=== PATIENT | female | born 1980 | race Caucasian/White ===

== ENCOUNTER → 2017-05-08 09:42 | Outpatient (CLI) | payer BC, SELFPAY ==
[2017-05-08 10:18] LABS: Absolute Lymphocyte Count 1.82 X10^3/ul (0.83-4.51); Absolute Neutrophil Count 6.5 X10^3/uL (2.0-7.7); Basophil# 0.02 X10^3/uL; Basophil% 0.2 % (0-1); Eosinophil# 0.05 X10^3/uL; Eosinophils% 0.6 % (0-5); Hemoglobin 10.8 g/dl (12.0-15.0); Lymphocyte # 1.82 X10^3/ul (4.0); Lymphocyte % 20.4 % (19-41); Mean Corp Hgb Conc 32.7 g/gl (32-36); Mean Corpuscular Volume 82.5 fL (81-99); Mean Platelet Vol. 9.8 fl (6.2-12.0); Monocyte# 0.49 X10^3/uL; Monocyte% 5.5 % (0-10); Neutrophil # 6.51 X10^3/uL (2.7-7.7); Neutrophil % 73.1 % (47-70); Platelet Count 281 K/mm3 (150-450); RBC Distribution Width CV 13.8 % (11.6-14.6); RBC Distribution Width SD 41.2 fl (35.1-43.9); White Blood Count 8.9 K/mm3 (4.4-11.0)
[2017-05-08 10:38] LABS: Glucose Challenge Gest 1H 50g 54 mg/dL (70-140)
== END ==
PROVIDERS: Family Provider Student in an Organized Health Care Education/Training Program; PCP Student in an Organized Health Care Education/Training Program; Visit Provider Obstetrics & Gynecology
DX: O09.92 Supervision of high risk pregnancy, unspecified, second trimester (principal); Z3A.00 Weeks of gestation of pregnancy not specified
CPT/HCPCS: 36415; 82950; 85025; 86850; 86900

== ENCOUNTER → 2017-05-22 18:02 | Outpatient (CLI) | payer BC, SELFPAY ==
[2017-05-22 18:49] LABS: Protein:Creat Ratio 122 mg/g CRE (0-200)
== END ==
PROVIDERS: Family Provider Student in an Organized Health Care Education/Training Program; PCP Student in an Organized Health Care Education/Training Program; Visit Provider Obstetrics & Gynecology
DX: O12.03 Gestational edema, third trimester (principal); Z3A.00 Weeks of gestation of pregnancy not specified
CPT/HCPCS: 82570; 84156

== ENCOUNTER → 2017-05-30 07:58 | Outpatient (CLI) | payer BC, SELFPAY ==
--- NOTE | 2017-05-30 08:00 | US_ITS ---
STUDY: SECOND AND THIRD TRIMESTER OBSTETRICAL ULTRASOUND - LIMITED REASON FOR EXAM: Female, 36 years old. Routine survey. LMP: October 21, 2016. PRIOR ULTRASOUND: Comparison is made with prior study dated March 04, 2017. TECHNIQUE: Transabdominal ultrasound evaluation was performed. FINDINGS: There is a single intrauterine fetus. The fetus is in a cephalic presentation. There is demonstrated cardiac activity with a heart rate of 134 bpm. There is increased amniotic fluid volume consistent with polyhydramnios. The largest amniotic fluid pocket measures 9.3 cm. The amniotic fluid index (TERELL) is 25.01 cm. The placenta is anterior in location and is not low lying. There are Grade 0 placental changes. The cervix was not well visualized due to the head positioning. BIOMETRY: BPD: 8.23 cm: 33 weeks, 1 days HC: 31.51 cm: 35 weeks, 3 days AC: 28.95 cm: 33 weeks, 0 days FL: 6.16 cm: 32 weeks, 0 days Age by LMP: 31 weeks, 4 days. JAMIE by LMP: July 28, 2017. age by prior US: 31 weeks, 3 days. JAMIE by prior US: July 27, 2017. age by current US: 33 weeks, 3 days. JAMIE by current US: July 15, 2017. Estimated weight: 2078 grams, +/- 303 grams, 82 percentile. Gender: Male US/OB Limited With Biometrics IMPRESSION: Single live uterine gestation with mean gestational age of 31 weeks and 3 days. The measurements obtained today following the normal expected range. Mild degree of polyhydramnios. Electronically Signed: Gagandeep Byrd MD at 13:36 EDT Tel [phone], Service support ,
== END ==
PROVIDERS: Family Provider Student in an Organized Health Care Education/Training Program; PCP Student in an Organized Health Care Education/Training Program; Visit Provider Obstetrics & Gynecology
DX: O26.843 Uterine size-date discrepancy, third trimester (principal); Z3A.00 Weeks of gestation of pregnancy not specified
CPT/HCPCS: 76816

== ENCOUNTER → 2017-06-06 08:15 | Outpatient (CLI) | payer BC, SELFPAY ==
[2017-06-06 09:38] LABS: Hemoglobin A1c 5.5 % (4.2-6.3)
== END ==
PROVIDERS: Family Provider Student in an Organized Health Care Education/Training Program; PCP Student in an Organized Health Care Education/Training Program; Visit Provider Obstetrics & Gynecology
DX: O40.9XX0 Polyhydramnios, unspecified trimester, not applicable or unspecified (principal); Z3A.00 Weeks of gestation of pregnancy not specified
CPT/HCPCS: 36415; 83036

== ENCOUNTER → 2017-06-26 12:23 | Outpatient (CLI) | payer BC, SELFPAY ==
--- NOTE | 2017-06-26 12:24 | US_ITS ---
STUDY: SECOND AND THIRD TRIMESTER OBSTETRICAL ULTRASOUND - LIMITED REASON FOR EXAM: Female, 36 years old. Polyhydramnios. LMP: October 21, 2016. PRIOR ULTRASOUND: Comparison is made with prior study dated May 30, 2017. TECHNIQUE: Transabdominal ultrasound evaluation was performed. FINDINGS: There is a single intrauterine fetus. The fetus is in a cephalic presentation. There is demonstrated cardiac activity with a heart rate of 128 bpm. There is a normal amniotic fluid volume. The largest amniotic fluid pocket measures 12.0 cm x 8.1 cm. The amniotic fluid index (TERELL) is 28 cm. Once again, there is evidence of polyhydramnios. The placenta is anterior in location and is not low lying. There are Grade 1 placental changes. The cervix measures 4.5 cm in length. BIOMETRY: BPD: 9.29 cm: 37 weeks, 6 days HC: 33.65 cm: 38 weeks, 4 days AC: 34.13 cm: 38 weeks, 1 days FL: 7.12 cm: 36 weeks, 4 days Age by LMP: 35 weeks, 3 days. JAMIE by LMP: July 28, 2017. age by prior US: 37 weeks, 3 days. JAMIE by prior US: July 15, 2017. age by current US: 37 weeks, 6 days. JAMIE by current US: July 11, 2017. Estimated weight: 3284 grams, +/- 479 grams, 96 percentile. Gender: Male US/OB Limited With Biometrics IMPRESSION: Single live uterine gestation with a mean gestational age of 37 weeks and 3 days. The measurements obtained today following the normal expected range. Polyhydramnios. Electronically Signed: Gagandeep Byrd MD at 14:04 EDT Tel [phone], Service support ,
== END ==
PROVIDERS: Family Provider Student in an Organized Health Care Education/Training Program; PCP Student in an Organized Health Care Education/Training Program; Visit Provider Obstetrics & Gynecology
DX: O40.9XX0 Polyhydramnios, unspecified trimester, not applicable or unspecified (principal); Z3A.00 Weeks of gestation of pregnancy not specified
CPT/HCPCS: 76816

== ENCOUNTER → 2017-07-01 15:57 | Outpatient (CLI) | payer BC, SELFPAY ==
[2017-07-01 18:55] LABS: Group B Strep DNA By PCR Negative (Negative); Internal Control PASS; Probe Check PASS; Specimen Processing Control PASS
== END ==
PROVIDERS: Family Provider Student in an Organized Health Care Education/Training Program; PCP Student in an Organized Health Care Education/Training Program; Visit Provider Nurse Practitioner Women's Health
DX: Z34.83 Encounter for supervision of other normal pregnancy, third trimester (principal); Z3A.36 36 weeks gestation of pregnancy
CPT/HCPCS: 87081; 87653

== ENCOUNTER 2017-07-09 16:25 | Outpatient (CLI) | payer BC, SELFPAY ==
[2017-07-09 16:42] VITALS: BMI 42.1
--- NOTE | 2017-07-10 04:32 | OB.TRI.NOTE ---
History of Present Illness Date of Service: 07/09/17 Was patient seen by the physician?: No Reason For Visit: NST Date of Service: 07/09/17 Final JAMIE: 07/28/17 Gestational age: 37 Weeks and 3 Days Home Medications Medication Instructions Recorded #103/Iron Fumarate/FA 1 ea PO DAILY 08/24/16 [ Tablet] compression stocking,knee See Dose Instructions .ROUTE 05/22/17 high,long length,large circum .MEDSUPPLY #12 ea Allergies No Known Allergies Allergy (Verified 07/08/17 08:32)
== END 2017-07-09 17:40 | disposition home or self-care (01) ==
LOC: WPOUT 16:30 → WP 16:32
PROVIDERS: Family Provider Student in an Organized Health Care Education/Training Program; PCP Student in an Organized Health Care Education/Training Program; Visit Provider Obstetrics & Gynecology
DX: O36.8130 Decreased fetal movements, third trimester, not applicable or unspecified (principal); Z3A.37 37 weeks gestation of pregnancy
CPT/HCPCS: 59025; 59050; 99218; G0378

== ENCOUNTER 2017-07-21 05:07 | Inpatient (IN) | payer BC, SELFPAY ==
[2017-07-15 09:19] VITALS: BMI 42.8
[2017-07-21] VITALS (22 sets, daily range): BP systolic 97–127; BP diastolic 32–77; PULSE 64–90; RESP 16–18; TEMP 36.7–37.5; O2SAT 95–100; BMI 43.2
[2017-07-21] MEDS: Lactated Ringers 1,000 ML 999 ML IV (05:30)
[2017-07-21 06:12] LABS: Absolute Neutrophil Count 8.1 X10^3/uL (2.0-7.7); Basophil# 0.02 X10^3/uL; Basophil% 0.2 % (0-1); Eosinophil# 0.08 X10^3/uL; Eosinophils% 0.7 % (0-5); Hematocrit 32.9 % (37-47); Hemoglobin 10.5 g/dl (12.0-15.0); Lymphocyte % 21.5 % (19-41); Mean Corp Hgb Conc 31.9 g/gl (32-36); Mean Corpuscular Hgb 24.7 pg (27.0-32.0); Mean Corpuscular Volume 77.4 fL (81-99); Mean Platelet Vol. 10.1 fl (6.2-12.0); Monocyte# 0.55 X10^3/uL; Monocyte% 4.9 % (0-10); Neutrophil # 8.08 X10^3/uL (2.7-7.7); Neutrophil % 72.5 % (47-70); POSITIVE COUNT NO; POSITIVE DIFFERENTIAL NO; POSITIVE MORPHOLOGY NO; Platelet Count 268 K/mm3 (150-450); RBC Distribution Width CV 16.5 % (11.6-14.6); RBC Distribution Width SD 46.5 fl (35.1-43.9); Red Blood Count 4.25 M/mm3 (4.2-5.4); White Blood Count 11.2 K/mm3 (4.4-11.0)
[2017-07-21] MEDS: Lactated Ringers 1,000 ML 150 ML IV (06:30)
[2017-07-21] MEDS: Sodium Citrate/Citric Acid 30 ML UDC PO (07:04)
--- NOTE | 2017-07-21 07:42 | PCM.HP.OB ---
- Problem List (1) Supervision of high-risk of elderly multigravida, third trimester Status: Acute Comment: PRR JAMIE 07/28/17 boy on us PC Alicia Bahena, Jatinder. (2) Large for gestational age fetus affecting mother, antepartum, third trimester, single gestation Status: Acute Comment: 96% (3) Polyhydramnios affecting Status: Acute Comment: nl hga1c, recommend weekly nsts until delivery (4) Edema during in third trimester Status: Acute Comment: urine protein/creatinine ratio, preeclampsia precautions reviewed, compression stockings given (5) Advanced maternal age (AMA) in Status: Acute Comment: NIPT screeningnormal (6) History of 2 sections Status: Acute Comment: planning RLTCS (7) Need for rhogam due to Rh negative mother Status: Acute Comment: rhogam PRN and 28 weeks- given History Date of Admission: 07/21/17 Final JAMIE: 07/28/17 Gestational age: 39 Weeks and 0 Days History of this : 36 yo @ 39w presents for repeat LTCS. she has had a complicated by All Active Problems (Last Reviewed 07/15/17 @ 08:34 by Aleah Arellano) Supervision of high-risk of elderly multigravida, third trimester (Acute) Large for gestational age fetus affecting mother, antepartum, third trimester, single gestation (Acute) Polyhydramnios affecting (Acute) Edema during in third trimester (Acute) Advanced maternal age (AMA) in (Acute) History of 2 sections (Acute) Need for rhogam due to Rh negative mother (Acute) Uterine size-date discrepancy in third trimester (Ruled-out) Pertinent Past Medical History: [facility] Medical History AMA (advanced maternal age) multigravida 35+ (Acute) Melanoma (Acute) Surgical History delivery delivered (Acute) H/O bariatric surgery (Acute) Family History Mother Breast cancer Aunt Breast cancer Social History Smoking Status: Former smoker alcohol intake: never substance use type: does not use caffeine: Yes what type of physical activity do you participate in: none seatbelt use: always additional social history: jatinder- Pregancy History 4 Elective abortions Hx Para 2 Spontaneous abortions Hx # Term Pregnancies Ectopic pregnancies Hx # Pregnancies Multiple births # of living children Past Pregnancies Del. Date Name GA/Weeks Outcome Route Bth Weight Infant Gen Labor Lgth Anesthesia Del Locatn Provider FOB 12/06/14 Max 39 live - full term [facility] Shiva 02/02/10 Alicia 39 live - full term Female [place] Allergies No Known Allergies Allergy (Verified 07/15/17 08:34) Current Medications Citric Acid/Sodium Citrate (Bicitra) 30 ml PO UD KELLE Last Admin: 07/21/17 07:04 Dose: 30 ml Lactated Ringer's () 1,000 mls @ 150 mls/hr IV .Q6H40M KELLE Last Admin: 07/21/17 06:30 Dose: 150 mls/hr Sodium Chloride () 0 ml IV UD KELLE Last Admin: 07/21/17 06:43 Dose: Not Given Smoking Status: Never smoker Alcohol: None Drug Use: none Number of Fetus(es): 1 - fht 140s Review of Systems Constitutional: Denies: Chills, Fever, Weight Change HEENT: Denies: Head Aches, Sinus Congestion, Sinus Drainage Cardiovascular: Denies: Chest Pain, Palpitations Respiratory: Denies: Cough, Shortness of breath at rest, Sputum production Gastrointestinal: Denies: Abdominal Pain, Nausea, Vomiting Genitourinary: Denies: Dysuria Musculoskeletal: Denies: Joint Pain, Joint Tenderness Skin: Denies: Rash, Wounds Neurological: Denies: Numbness, Tingling, Focal weakness Psychiatric: Denies: Anxiety, Depression, Homicidal Ideations, Suicidal Ideations Hematologic/ Lymphatic: Denies: Easy Bruising, Easy Bleeding Physical Exam General: Alert, Oriented x3, No apparent distress Cardiovascular: Regular rate, Regular Rhythm Lungs: Clear to auscultation Abdomen: Bowel Sounds Present, Gravid Estimated gestational size: Large for gestational age Assessment/Plan 36 yo @ 39 weeks presents for RLTCS 1. plan rltcs
--- NOTE | 2017-07-21 07:45 | HP.PCM_ITS ---
- Problem List (1) Supervision of high-risk of elderly multigravida, third trimester Status: Acute Comment: PRR JAMIE 07/28/17 boy on us PC Alicia Bahena, Jatinder. (2) Large for gestational age fetus affecting mother, antepartum, third trimester, single gestation Status: Acute Comment: 96% (3) Polyhydramnios affecting Status: Acute Comment: nl hga1c, recommend weekly nsts until delivery (4) Edema during in third trimester Status: Acute Comment: urine protein/creatinine ratio, preeclampsia precautions reviewed, compression stockings given (5) Advanced maternal age (AMA) in Status: Acute Comment: NIPT screeningnormal (6) History of 2 sections Status: Acute Comment: planning RLTCS (7) Need for rhogam due to Rh negative mother Status: Acute Comment: rhogam PRN and 28 weeks- given History Date of Admission: 07/21/17 Final JAMIE: 07/28/17 Gestational age: 39 Weeks and 0 Days History of this : 36 yo @ 39w presents for repeat LTCS. she has had a complicated by All Active Problems (Last Reviewed 07/15/17 @ 08:34 by Aleah Arellano) Supervision of high-risk of elderly multigravida, third trimester ( Acute) Large for gestational age fetus affecting mother, antepartum, third trimester, single gestation (Acute) Polyhydramnios affecting (Acute) Edema during in third trimester (Acute) Advanced maternal age (AMA) in (Acute) History of 2 sections (Acute) Need for rhogam due to Rh negative mother (Acute) Uterine size-date discrepancy in third trimester (Ruled-out) Pertinent Past Medical History: [facility] Medical History AMA (advanced maternal age) multigravida 35+ (Acute) Melanoma (Acute) Surgical History delivery delivered (Acute) H/O bariatric surgery (Acute) Family History Mother Breast cancer Aunt Breast cancer Social History Smoking Status: Former smoker alcohol intake: never substance use type: does not use caffeine: Yes what type of physical activity do you participate in: none seatbelt use: always additional social history: jatinder- Pregancy History 4 Elective abortions Hx Para 2 Spontaneous abortions Hx # Term Pregnancies Ectopic pregnancies Hx # Pregnancies Multiple births # of living children Past Pregnancies Del. Date Name GA/Weeks Outcome Route Bth Weight Infant Gen Labor Lgth Anesthesia Del Locatn Provider FOB 12/06/14 Max 39 live - full term [facility] Shiva 02/02/10 Alicia 39 live - full term Female [place] Allergies No Known Allergies Allergy (Verified 07/15/17 08:34) Current Medications Citric Acid/Sodium Citrate (Bicitra) 30 ml PO UD KELLE Last Admin: 07/21/17 07:04 Dose: 30 ml Lactated Ringer's () 1,000 mls @ 150 mls/hr IV .Q6H40M KELLE Last Admin: 07/21/17 06:30 Dose: 150 mls/hr Sodium Chloride () 0 ml IV UD KELLE Last Admin: 07/21/17 06:43 Dose: Not Given Smoking Status: Never smoker Alcohol: None Drug Use: none Number of Fetus(es): 1 - fht 140s Review of Systems Constitutional: Denies: Chills, Fever, Weight Change HEENT: Denies: Head Aches, Sinus Congestion, Sinus Drainage Cardiovascular: Denies: Chest Pain, Palpitations Respiratory: Denies: Cough, Shortness of breath at rest, Sputum production Gastrointestinal: Denies: Abdominal Pain, Nausea, Vomiting Genitourinary: Denies: Dysuria Musculoskeletal: Denies: Joint Pain, Joint Tenderness Skin: Denies: Rash, Wounds Neurological: Denies: Numbness, Tingling, Focal weakness Psychiatric: Denies: Anxiety, Depression, Homicidal Ideations, Suicidal Ideations Hematologic/ Lymphatic: Denies: Easy Bruising, Easy Bleeding Physical Exam General: Alert, Oriented x3, No apparent distress Cardiovascular: Regular rate, Regular Rhythm Lungs: Clear to auscultation Abdomen: Bowel Sounds Present, Gravid Estimated gestational size: Large for gestational age Assessment/Plan 36 yo @ 39 weeks presents for RLTCS 1. plan rltcs
[2017-07-21] MEDS: Oxytocin 30 units/NS 500 ml 30 UNITS/500 ML IV.SOLN 167 UNITS IV (07:56)
[2017-07-21] MEDS: Ketorolac 30 MG/ML Syringe IV ×3 (08:00→20:20)
--- NOTE | 2017-07-21 09:01 | NURSING ---
bolus of lr infusing at this time for bp of 97/32
[2017-07-21] MEDS: Lactated Ringers 1,000 ML 100 ML IV ×2 (09:24→16:26)
[2017-07-21] MEDS: 0.9% Saline Lock 10 ML Syringe IV (14:13)
[2017-07-22] VITALS (7 sets, daily range): BP systolic 97–112; BP diastolic 55–61; PULSE 64–87; RESP 16–18; TEMP 36.4–37.2; O2SAT 97–100
[2017-07-22] MEDS: Acetaminophen 500 MG Tablet 1000 MG PO (00:05)
[2017-07-22] MEDS: Ketorolac 30 MG/ML Syringe IV ×4 (02:33→21:41)
--- NOTE | 2017-07-22 04:57 | PCM.OPRPT ---
Problem List (1) Supervision of high-risk of elderly multigravida, third trimester Status: Acute Comment: PRR JAMIE 07/28/17 boy on us PC Alicia Bahena, Jason. (2) Large for gestational age fetus affecting mother, antepartum, third trimester, single gestation Status: Acute Comment: 96% (3) Polyhydramnios affecting Status: Acute Comment: nl hga1c, recommend weekly nsts until delivery (4) Edema during in third trimester Status: Acute Comment: urine protein/creatinine ratio, preeclampsia precautions reviewed, compression stockings given (5) Advanced maternal age (AMA) in Status: Acute Comment: NIPT screeningnormal (6) History of 2 sections Status: Acute Comment: planning RLTCS (7) Need for rhogam due to Rh negative mother Status: Acute Comment: rhogam PRN and 28 weeks- given Report of Operation Date of Procedure: 07/21/17 Pre-Operative Diagnosis: previous cs x 2 Post-Operative Diagnosis: same Surgery/Procedure Performed:: RLTCS Description of Surgical Findings:: minimal scar tissue, some thinning of right lower uterine segment but overall within normal limits personal finance instructor: [place] Randolph Type of Anesthesia:: Spinal Special Medications: none Specimen's removed: male vertex presentation Drains: helton Estimated Blood Loss (mL): 400 Fluids Replaced: crystalloid Description of Procedure: The patient is a @ 39 weeks presented for repeat . Spinal anesthesia was placed without difficulty. Helton catheter was placed. The patient was placed in the dorsal supine position with leftward tilt. Patient was prepped and draped in the normal sterile fashion. Pfannenstiel skin incision was made with the scalpel and carried through to the underlying layer of fascia with the scalpel. Fascia was nicked in the midline and the incision extended laterally. minimal scar tissue encountered.The rectus bellies were dissected off superiorly and inferiorly with out complication both sharply and bluntly. The peritoneum was entered digitally. The incision was stretched and a low transverse uterine incision was made with the scalpel. there was some thinning of the right JULIA but overall it was normal. The infant's head was delivered atraumatically followed by the anterior and posterior shoulders without complication the rest of the infant delivered. The cord was clamped and cut and the infant was handed off to awaiting nurse. The placenta was delivered spontaneously immediately following and was noted to be intact and have a three-vessel cord. The uterus was exteriorized cleared of all clots and debris, and the incision was closed in a double layer closure using #1 Monocryl. The uterus was returned to the maternal abdomen and gutters were cleared of all clots and debris. The ovaries and fallopian tubes were noted to be within normal limits. The peritoneum was closed with 3-0 Monocryl in a running fashion. Fascia was closed with 0 PDS in a running fashion. Subcutaneous tissue was copiously irrigated and the skin was closed with 3-0 Monocryl in a subcuticular fashion. Steri-Strips and Mepilex dressing were applied without complication. Patient was taken to recovery in stable condition. Grafts/Implants Used: none - Complications none
[2017-07-22 05:36] LABS: Hematocrit 29.4 % (37-47); Hemoglobin 9.2 g/dl (12.0-15.0); Mean Corp Hgb Conc 31.3 g/gl (32-36); Mean Corpuscular Hgb 24.5 pg (27.0-32.0); Mean Corpuscular Volume 78.2 fL (81-99); Mean Platelet Vol. 9.6 fl (6.2-12.0); Platelet Count 190 K/mm3 (150-450); RBC Distribution Width CV 16.7 % (11.6-14.6); RBC Distribution Width SD 47.7 fl (35.1-43.9); Red Blood Count 3.76 M/mm3 (4.2-5.4); White Blood Count 8.4 K/mm3 (4.4-11.0)
[2017-07-22 05:52] LABS: Scan Indicated on CBC? Y/N NO
[2017-07-22] MEDS: 0.9% Saline Lock 10 ML Syringe IV ×3 (09:10→21:41)
[2017-07-22] MEDS: oxyCODONE 5 MG Tablet PO ×2 (13:01→18:27)
--- NOTE | 2017-07-22 17:37 | PCM.PN.OB ---
Subjective: doing well no complaints - Physical Exam General: Alert, Oriented x3 Vital Signs Temp Pulse Resp BP Pulse Ox 98.9 F 86 16 102/56 L 99 07/22/17 13:36 07/22/17 13:36 07/22/17 13:36 07/22/17 13:36 07/22/17 13:36 Oxygen Delivery Method Room Air Weight: 268 lb 1.314 oz Body Mass Index (BMI) 43.2 Intake and Output for Last 24 Hours 07/20/17 07/21/17 07/22/17 23:59 23:59 23:59 Intake Total 2944 / 2944 1073 / 1073 Output Total 1300 / 1300 2450 / 2450 Balance 1644 / 1644 -1377 / -1377 Laboratory Tests Past 24 Hrs 07/22/17 05:10 WBC 8.4 RBC 3.76 L Hgb 9.2 L Hct 29.4 L MCV 78.2 L MCH 24.5 L MCHC 31.3 L RDW 16.7 H RDW Differential 47.7 H Plt Count 190 MPV 9.6 Medical Necessity - Tobacco Use Smoking Status: Never smoker Assessment/Plan s/p rltcs routine care doing well
[2017-07-22] MEDS: Senna/Docusate Sodium 1 Tablet PO (21:41)
[2017-07-23 03:03] VITALS: BP 108/59; PULSE 68; RESP 16; TEMP 36.8; O2SAT 100
[2017-07-23] MEDS: Ketorolac 30 MG/ML Syringe IV (03:07)
[2017-07-23] MEDS: 0.9% Saline Lock 10 ML Syringe IV (03:07)
[2017-07-23 08:00] VITALS: BP 119/48; PULSE 77; RESP 18; TEMP 37.2; O2SAT 96
--- NOTE | 2017-07-23 08:04 | PCM.PN.OB ---
Subjective: Doing well. No SOB, CP. - Physical Exam General: Alert, Oriented x3 Abdomen: Soft, Non Tender, - - FF below U. Dressing dry and intact Vital Signs Temp Pulse Resp BP Pulse Ox 98.3 F 68 16 108/59 L 100 07/23/17 03:03 07/23/17 03:03 07/23/17 03:03 07/23/17 03:03 07/23/17 03:03 Oxygen Delivery Method Room Air Weight: 268 lb 1.314 oz Body Mass Index (BMI) 43.2 Intake and Output for Last 24 Hours 07/21/17 07/22/17 07/23/17 23:59 23:59 23:59 Intake Total 2944 / 2944 1073 / 1073 Output Total 1300 / 1300 2450 / 2450 Balance 1644 / 1644 -1377 / -1377 Medical Necessity - Tobacco Use Smoking Status: Never smoker Assessment/Plan R CS POD#2: , normal lochia, Rh negative. Plans home tomorrow. Routine care.
[2017-07-23] MEDS: Naproxen 250 MG Tablet PO ×2 (09:11→20:54)
[2017-07-23] MEDS: Acetaminophen 500 MG Tablet 1000 MG PO (13:59)
[2017-07-23 14:00] VITALS: BP 108/57; PULSE 77; RESP 16; TEMP 37.1; O2SAT 96
[2017-07-23 20:55] VITALS: BP 115/61; PULSE 78; RESP 18; TEMP 36.6; O2SAT 97
[2017-07-24 01:35] VITALS: BP 111/46; PULSE 73; RESP 17; TEMP 36.5
[2017-07-24] MEDS: Acetaminophen 500 MG Tablet 1000 MG PO (01:36)
[2017-07-24] MEDS: Naproxen 250 MG Tablet PO (06:39)
--- NOTE | 2017-07-24 07:42 | PCM.DCCSEC ---
Additional Instructions: If you experience any of the following, contact your healthcare provider. Bleeding that soaks a pad every hour for 2 hours Fever 100.4 or higher Unrelieved incision or abdominal pain Swelling, redness, discharge or bleeding from your incision or episiotomy site Your incision begins to separate Problems urinating (including inability to urinate or burning while urinating). Visual changes Severe headache Flu-like symptoms Pain or redness in one of both of your breasts Pain, warmth, tenderness or swelling in your legs, especially the calf area Frequent nausea and vomiting Symptoms of depression or anxiety If you experience any of the following, call 911 or go to the nearest Emergency Room. Chest pain Problems breathing Seizure activity Partial or complete paralysis of a body part, slurred speech, weakness or drooping of the face, or a sudden inability to walk or hold your balance Allergies/Adverse Reactions: Allergies No Known Allergies Allergy (Verified 07/15/17 08:34) Medications to take at Discharge #103/Iron Fumarate/FA [ Tablet] 1 ea PO DAILY 08/24/16 compression stocking,knee high,long length,large circum See Dose Instructions .ROUTE .MEDSUPPLY #12 ea 05/22/17 Ferrous Sulfate [Iron] 325 mg PO 07/15/17 Oxycodone HCl/Acetaminophen [Percocet 5/325] 1 - 2 tablet PO Q4H PRN PRN 7 Days #15 tablet 07/24/17 The following prescriptions were given: Oxycodone HCl/Acetaminophen [Percocet 5/325] 1 - 2 tablet PO Q4H PRN PRN 7 Days #15 tablet PRN Reason: Pain Follow-Up: Call to make an appointment with your doctor for an incision check in 1-2 weeks. You will also need a 6 week post- follow up appointment. Primary Care Physician: Mingo Au DO [Primary Care Provider] -
--- NOTE | 2017-07-24 07:43 | DCINST_ITS ---
Additional Instructions: If you experience any of the following, contact your healthcare provider. * Bleeding that soaks a pad every hour for 2 hours * Fever 100.4 or higher * Unrelieved incision or abdominal pain * Swelling, redness, discharge or bleeding from your incision or episiotomy site * Your incision begins to separate * Problems urinating (including inability to urinate or burning while urinating) . * Visual changes * Severe headache * Flu-like symptoms * Pain or redness in one of both of your breasts * Pain, warmth, tenderness or swelling in your legs, especially the calf area * Frequent nausea and vomiting * Symptoms of depression or anxiety If you experience any of the following, call 911 or go to the nearest Emergency Room. * Chest pain * Problems breathing * Seizure activity * Partial or complete paralysis of a body part, slurred speech, weakness or drooping of the face, or a sudden inability to walk or hold your balance Allergies/Adverse Reactions: Allergies No Known Allergies Allergy (Verified 07/15/17 08:34) Medications to take at Discharge #103/Iron Fumarate/FA [ Tablet] 1 ea PO DAILY 08/24/16 compression stocking,knee high,long length,large circum See Dose Instructions .ROUTE .MEDSUPPLY #12 ea 05/22/17 Ferrous Sulfate [Iron] 325 mg PO 07/15/17 Oxycodone HCl/Acetaminophen [Percocet 5/325] 1 - 2 tablet PO Q4H PRN PRN 7 Days #15 tablet 07/24/17 The following prescriptions were given: Oxycodone HCl/Acetaminophen [Percocet 5/325] 1 - 2 tablet PO Q4H PRN PRN 7 Days #15 tablet PRN Reason: Pain Follow-Up: Call to make an appointment with your doctor for an incision check in 1-2 weeks. You will also need a 6 week post- follow up appointment. Primary Care Physician: Mingo Au DO [Primary Care Provider] -
[2017-07-24 08:00] VITALS: BP 127/81; PULSE 84; RESP 16; TEMP 37.1
[2017-07-24 12:00] VITALS: BP 113/62; PULSE 82; RESP 18; TEMP 37.2
--- NOTE | 2017-07-24 13:54 | NURSING ---
1315 infant and maternal bracelet numbers match; infant placed in car seat per parents dc to home
--- NOTE | 2017-07-27 08:24 | PCM.DC.SUM ---
Discharge Date and Diagnosis Date of Admission: 07/21/17 Date of Discharge: 07/24/17 - Primary Discharge Diagnosis previous cs x 2 - Secondary Discharge Diagnosis same Hospital Course and Treatment Operations: - - RLTCS Summary of Care Provided: The patient is a 36 year old F presented for RLTCS tolerated procedure well routine recovery return of bowel and bladder function Discharge Diet: No Restrictions Discharge Activity: No Restrictions Home Medications: Medications to take at Discharge #103/Iron Fumarate/FA [ Tablet] 1 ea PO DAILY 08/24/16 compression stocking,knee high,long length,large circum See Dose Instructions .ROUTE .MEDSUPPLY #12 ea 05/22/17 Ferrous Sulfate [Iron] 325 mg PO 07/15/17 Oxycodone HCl/Acetaminophen [Percocet 5/325] 1 - 2 tablet PO Q4H PRN PRN 7 Days #15 tablet 07/24/17 Following Prescrptions Were Given to Patient: Oxycodone HCl/Acetaminophen [Percocet 5/325] 1 - 2 tablet PO Q4H PRN PRN 7 Days #15 tablet PRN Reason: Pain Primary Care Physician: Mingo Au DO [Primary Care Provider] - Medical Necessity - Tobacco Use Smoking Status: Never smoker Meaningful Use Info Meaningful Use Diagnoses (Choose all that apply): None applicable
== END 2017-07-24 13:15 | disposition home or self-care (01) | DRG 765 ==
PROVIDERS: Admitting Provider Obstetrics & Gynecology; Family Provider Student in an Organized Health Care Education/Training Program; PCP Student in an Organized Health Care Education/Training Program; Visit Provider Obstetrics & Gynecology
PROC: 10D00Z1 Extraction of Products of Conception, Low, Open Approach (ICD-10-PCS; CPT 59514; principal; 2017-07-21 07:15)
DX: O34.211 Maternal care for low transverse scar from previous cesarean delivery (principal); O40.3XX0 Polyhydramnios, third trimester, not applicable or unspecified; Z37.0 Single live birth; N85.8 Other specified noninflammatory disorders of uterus; Z3A.39 39 weeks gestation of pregnancy; O36.63X0 Maternal care for excessive fetal growth, third trimester, not applicable or unspecified
CPT/HCPCS: 85025; 85027; 85461; 86850; 86900; 90384; 94762; 99218; J7120; A4216; G0378; J2790

== ENCOUNTER → 2018-09-30 | Outpatient (CLI) | payer BC, SELFPAY ==
[2018-09-30 09:55] VITALS: BMI 40.0
[2018-10-05 11:27] LABS: HPV APTIMA, High Risk Negative (Negative)
== END | disposition home or self-care (01) ==
LOC: LABSPEC 15:57
PROVIDERS: Family Provider Student in an Organized Health Care Education/Training Program; PCP Student in an Organized Health Care Education/Training Program; Referring Provider Nurse Practitioner Women's Health; Visit Provider Nurse Practitioner Women's Health
DX: Z12.4 Encounter for screening for malignant neoplasm of cervix (principal)
CPT/HCPCS: 87624; 88175; G0145

== ENCOUNTER → 2018-10-13 | Outpatient (CLI) | payer BC, SELFPAY ==
[2018-09-30 09:55] VITALS: BMI 40.0
--- NOTE | 2018-10-13 08:00 | BI_ITS ---
MAMMOGRAPHY - BILATERAL SCREENING REASON FOR EXAM: Female, 37 years old. Routine annual screening examination. PERTINENT HISTORY: Mother with breast cancer. Aunt with breast cancer. TECHNIQUE: Digital bilateral breast sandy (3D mammographic acquisition) in the CC and MLO projections. 2-D mediolateral oblique (MLO) and craniocaudad (CC) views of both breasts were obtained. CAD: Full Field Digital Mammography with Computer Added Detection was performed. COMPARISON: Comparison is made with prior outside examination dated March 25, 2016. FINDINGS: Breast Composition: There are scattered areas of fibroglandular density. There are no dominant masses or suspicious calcifications. No other significant abnormalities are identified. There has been no significant change since the prior study. BI/SCREEN MAMM (CAD) W/SANDY BILAT IMPRESSION: Stable bilateral screening mammogram. Yearly follow-up mammogram recommended. (A) ASSESSMENT CATEGORY: BIRADS Category 1: Negative. A letter regarding these results will be sent to the patient by the facility within 30 days. Approximately 10% of breast cancers are not detected by mammography. A normal mammogram should not delay biopsy of a clinically suspicious abnormality. [id number] Electronically Signed: Gagandeep Byrd, at 9:32 EDT , Service support ,
== END | disposition home or self-care (01) ==
LOC: OPBI 07:58
PROVIDERS: Family Provider Student in an Organized Health Care Education/Training Program; PCP Student in an Organized Health Care Education/Training Program; Referring Provider Nurse Practitioner Women's Health; Visit Provider Nurse Practitioner Women's Health
DX: Z12.31 Encounter for screening mammogram for malignant neoplasm of breast (principal)
CPT/HCPCS: 77063; 77067

== ENCOUNTER 2020-06-16 14:54 | Outpatient (RCR) | payer BC, SELFPAY ==
[2019-10-11 08:43] VITALS: BMI 40.0
== END 2020-08-22 23:59 ==
LOC: IMMUN 14:54
PROVIDERS: PCP Student in an Organized Health Care Education/Training Program; Referring Provider Family Medicine; Visit Provider Family Medicine
DX: Z23 Encounter for immunization (principal)
CPT/HCPCS: 0001A; 0002A; 91300

== ENCOUNTER → 2020-10-19 07:09 | Outpatient (CLI) | payer BC, SELFPAY ==
[2020-10-17 08:26] VITALS: BMI 41.6
--- NOTE | 2020-10-19 07:10 | BI_ITS ---
MAMMOGRAPHY - BILATERAL SCREENING REASON FOR EXAM: Female, 39 years old. Routine annual screening examination. PERTINENT HISTORY: Screening TECHNIQUE: Digital bilateral breast sandy (3D mammographic acquisition) in the CC and MLO projections. 2-D mediolateral oblique (MLO) and craniocaudad (CC) views of both breasts were obtained. CAD: Full Field Digital Mammography with Computer Added Detection was performed. COMPARISON: Previous mammogram from 09/16/2018 FINDINGS: Breast Composition: Heterogeneously dense There is a new focal nodular density noted involving the inferior lateral aspect of the right breast which previously was not identified. A targeted right breast ultrasound is recommended for additional evaluation. No other significant abnormalities are identified. BI/SCRN MAMM (CAD)W/SANDY BILAT IMPRESSION: Questionable new nodular density involving the inferior lateral aspect of the right breast. A targeted right breast ultrasound is recommended for further evaluation) ASSESSMENT CATEGORY: BIRADS Category 0: Incomplete. Need additional imaging evaluation. A letter regarding these results will be sent to the patient by the facility within 30 days. Approximately 10% of breast cancers are not detected by mammography. A normal mammogram should not delay biopsy of a clinically suspicious abnormality. [id number] Electronically Signed: Alberto Jvoel DO at 14:53 EDT Tel , Service support ,
== END ==
PROVIDERS: PCP Student in an Organized Health Care Education/Training Program; Visit Provider Nurse Practitioner Women's Health
DX: Z12.31 Encounter for screening mammogram for malignant neoplasm of breast (principal)
CPT/HCPCS: 77063; 77067

== ENCOUNTER → 2020-10-25 14:21 | Outpatient (CLI) | payer BC, SELFPAY ==
[2020-10-17 08:26] VITALS: BMI 41.6
--- NOTE | 2020-10-25 14:25 | US_ITS ---
STUDY: ULTRASOUND BREAST - RIGHT REASON FOR EXAM: Female, 39 years old. Abnormal screening mammogram. TECHNIQUE: Axial and longitudinal images of the RIGHT breast were performed with a high resolution ultrasound transducer. # OF IMAGES: 21 COMPARISON: Comparison is made with prior mammogram dated 10/19/2020. FINDINGS: RIGHT Breast: The lower lateral aspect of the right breast was examined by ultrasound. No sonographic abnormality is seen. US/Breast Limited Unilateral IMPRESSION: No sonographic abnormality is seen. Routine mammographic follow-up is recommended. ASSESSMENT CATEGORY: BIRADS Category 1: Negative. A letter regarding these results will be sent to the patient by the facility within 30 days. Electronically Signed: Gagandeep Byrd MD at 14:52 EDT , Service support ,
== END ==
PROVIDERS: PCP Student in an Organized Health Care Education/Training Program; Referring Provider Nurse Practitioner Women's Health; Visit Provider Nurse Practitioner Women's Health
DX: R92.8 Other abnormal and inconclusive findings on diagnostic imaging of breast (principal)
CPT/HCPCS: 76642

== ENCOUNTER → 2021-12-17 | Outpatient (CLI) | payer BC, SELFPAY ==
--- NOTE | 2021-12-17 08:27 | BI_ITS ---
MAMMOGRAPHY - BILATERAL SCREENING REASON FOR EXAM: Female, 40 years old. Routine annual screening examination. PERTINENT HISTORY: Mother with breast cancer. Aunt with breast cancer. TECHNIQUE: Digital bilateral breast sandy (3D mammographic acquisition) in the CC and MLO projections. 2-D mediolateral oblique (MLO) and craniocaudad (CC) views of both breasts were obtained. CAD: Full Field Digital Mammography with Computer Added Detection was performed. COMPARISON: Comparison is made with prior study 10/19/2020 and 10/13/2018. FINDINGS: Breast Composition: The breasts are heterogeneously dense, which may obscure small masses. There are no dominant masses or suspicious calcifications. No other significant abnormalities are identified. There has been no significant change since the prior study. BI/SCRN MAMM (CAD)W/SANDY BILAT IMPRESSION: Stable bilateral screening mammogram. Yearly follow-up mammogram recommended. (A) ASSESSMENT CATEGORY: BIRADS Category 2: Benign. A letter regarding these results will be sent to the patient by the facility within 30 days. Approximately 10% of breast cancers are not detected by mammography. A normal mammogram should not delay biopsy of a clinically suspicious abnormality. [id number] Electronically Signed: Gagandeep Byrd MD at 10:30 EDT ,
== END | disposition home or self-care (01) ==
PROVIDERS: PCP Student in an Organized Health Care Education/Training Program; Visit Provider Nurse Practitioner Women's Health
DX: Z12.31 Encounter for screening mammogram for malignant neoplasm of breast (principal); Z80.3 Family history of malignant neoplasm of breast
CPT/HCPCS: 77063; 77067

== ENCOUNTER → 2023-01-10 | Outpatient (CLI) | payer BC, SELFPAY ==
--- NOTE | 2023-01-10 08:19 | BI_ITS ---
MAMMOGRAPHY - BILATERAL SCREENING REASON FOR EXAM: Female, 42 years old. Routine annual screening examination. PERTINENT HISTORY: Mother with breast cancer. Aunt with breast cancer. TECHNIQUE: Digital bilateral breast sandy (3D mammographic acquisition) in the CC and MLO projections. 2-D mediolateral oblique (MLO) and craniocaudad (CC) views of both breasts were obtained. CAD: Full Field Digital Mammography with Computer Added Detection was performed. COMPARISON: Comparison is made with prior study December 17, 2021 and October 19, 2020. FINDINGS: Breast Composition: The breasts are heterogeneously dense, which may obscure small masses. There are no dominant masses or suspicious calcifications. No other significant abnormalities are identified. There has been no significant change since the prior study. BI/SCRN MAMM (CAD)W/SANDY BILAT IMPRESSION: Stable bilateral screening mammogram. Yearly follow-up mammogram recommended. (A) ASSESSMENT CATEGORY: BIRADS Category 1: Negative. A letter regarding these results will be sent to the patient by the facility within 30 days. Approximately 10% of breast cancers are not detected by mammography. A normal mammogram should not delay biopsy of a clinically suspicious abnormality. [id number] Electronically Signed: Gagandeep Byrd MD at 9:44 EDT ,
== END | disposition home or self-care (01) ==
LOC: OPBI 08:19
PROVIDERS: PCP Student in an Organized Health Care Education/Training Program; Referring Provider Nurse Practitioner Women's Health; Visit Provider Nurse Practitioner Women's Health
DX: Z12.31 Encounter for screening mammogram for malignant neoplasm of breast (principal); Z80.3 Family history of malignant neoplasm of breast
CPT/HCPCS: 77063; 77067

== ENCOUNTER → 2023-12-30 | Outpatient (CLI) | payer OTHER, SELFPAY ==
[2024-01-06 09:09] LABS: HPV APTIMA, High Risk Negative (Negative)
== END | disposition home or self-care (01) ==
PROVIDERS: PCP Student in an Organized Health Care Education/Training Program; Referring Provider Nurse Practitioner Women's Health; Visit Provider Nurse Practitioner Women's Health
DX: Z12.4 Encounter for screening for malignant neoplasm of cervix (principal)
CPT/HCPCS: 87624; 88175; G0145

== ENCOUNTER → 2024-01-13 | Outpatient (CLI) | payer OTHER, SELFPAY ==
--- NOTE | 2024-01-13 08:26 | BI_ITS ---
MAMMOGRAPHY - BILATERAL SCREENING REASON FOR EXAM: Female, 43 years old. Routine annual screening examination. PERTINENT HISTORY: Mother with breast cancer. Aunt with breast cancer. TECHNIQUE: Digital bilateral breast sandy (3D mammographic acquisition) in the CC and MLO projections. 2-D mediolateral oblique (MLO) and craniocaudad (CC) views of both breasts were obtained. CAD: Full Field Digital Mammography with Computer Added Detection was performed. COMPARISON: Comparison is made with prior study January 10, 2023 and December 17, 2021. FINDINGS: Breast Composition: The breasts are heterogeneously dense, which may obscure small masses. There are no dominant masses or suspicious calcifications. No other significant abnormalities are identified. There has been no significant change since the prior study. BI/SCRN MAMM (CAD)W/SANDY BILAT IMPRESSION: Stable bilateral screening mammogram. Yearly follow-up mammogram recommended. (A) ASSESSMENT CATEGORY: BIRADS Category 1: Negative. A letter regarding these results will be sent to the patient by the facility within 30 days. Approximately 10% of breast cancers are not detected by mammography. A normal mammogram should not delay biopsy of a clinically suspicious abnormality. [id number] Electronically Signed: Gagandeep Byrd MD at 11:43 EDT ,
== END | disposition home or self-care (01) ==
LOC: OPBI 08:26
PROVIDERS: PCP Student in an Organized Health Care Education/Training Program; Referring Provider Nurse Practitioner Women's Health; Visit Provider Nurse Practitioner Women's Health
DX: Z12.31 Encounter for screening mammogram for malignant neoplasm of breast (principal); Z80.3 Family history of malignant neoplasm of breast
CPT/HCPCS: 77063; 77067

== ENCOUNTER → 2025-01-10 | Outpatient (CLI) | payer BC, SELFPAY ==
[2025-01-12 15:08] LABS: HPV APTIMA, High Risk Negative (Negative)
== END | disposition home or self-care (01) ==
LOC: LABSPEC 09:02
PROVIDERS: PCP Student in an Organized Health Care Education/Training Program; Visit Provider Nurse Practitioner Women's Health
DX: Z11.3 Encounter for screening for infections with a predominantly sexual mode of transmission (principal)
CPT/HCPCS: 87624; 88175; G0145

== ENCOUNTER → 2025-01-13 | Outpatient (CLI) | payer BC, SELFPAY ==
--- NOTE | 2025-01-13 08:45 | BI_ITS ---
EXAM: SCRN MAMM (CAD)W/SANDY BILAT DATE: 01/13/2025 CLINICAL HISTORY: F, Age 44 y/o , SCREEN FOR BREAST CANCER Mother with breast cancer. Aunt with breast cancer. TECHNIQUE: Procedure Code: [id number] Modality: MG Procedure: SCRN MAMM (CAD)W/SANDY BILAT COMPARISON: Prior exam(s) dated January 13, 2024.. FINDINGS: TISSUE DENSITY: The breasts are heterogeneously dense, which may obscure small masses. Bilateral Breast Mammographic Findings: No significant masses, calcifications or other abnormalities are identified. No suspicious masses, areas of developing architectural distortion, or suspicious calcifications. There has been no significant interval change. BI/SCRN MAMM (CAD)W/SANDY BILAT IMPRESSION: Stable bilateral screening mammogram. OVERALL FINAL ASSESSMENT BI-RADS 1: NEGATIVE. RECOMMENDATION: Routine annual follow-up in 1 Year Additional Recommendation none A letter with findings and recommendations will be mailed to the patient. Reading Location: [id number]
== END | disposition home or self-care (01) ==
PROVIDERS: PCP Student in an Organized Health Care Education/Training Program; Referring Provider Nurse Practitioner Women's Health; Visit Provider Nurse Practitioner Women's Health
DX: Z12.31 Encounter for screening mammogram for malignant neoplasm of breast (principal)
CPT/HCPCS: 77063; 77067